=== PATIENT | male | born 1990 | race Caucasian/White ===

== ENCOUNTER 2018-03-22 15:18 | Emergency (ER) | payer MEDICAID ==
[2018-03-22] MEDS: IBUPROFEN 600 MG TAB PO (16:36)
== END 2018-03-22 18:15 | disposition home or self-care (01) ==
LOC: FTE 15:18
DX: S52.572A Other intraarticular fracture of lower end of left radius, initial encounter for closed fracture (principal); M25.422 Effusion, left elbow; V00.131A Fall from skateboard, initial encounter; Y92.9 Unspecified place or not applicable
CPT/HCPCS: 29125; 73080-LT; 73090; 73130-LT; 99283-25